=== PATIENT | male | born 1950 | race African-American/Black ===

== ENCOUNTER 2017-03-04 16:04 | Emergency (ER) | payer BC, MEDICARE ==
[~2017-03-04] VITALS: Ht 175.3 cm; Wt 82.0 kg
[2017-03-04] MEDS ORDERED: CLOP75TA33 (16:12)
[2017-03-04] MEDS ORDERED: ASPI-1159 PO (16:12)
[2017-03-04] MEDS ORDERED: CARV3.1242 (16:12)
[2017-03-04] MEDS ORDERED: IBUPROFEN 800MG TABLET PO ONE (17:30)
[2017-03-04 18:46] VITALS: BP 136/79
== END 2017-03-04 19:24 | disposition left against medical advice (07) ==
LOC: ER 16:10
DX: S22.41XA Multiple fractures of ribs, right side, initial encounter for closed fracture (principal); I25.2 Old myocardial infarction; R55 Syncope and collapse; Z79.82 Long term (current) use of aspirin; V49.9XXA Car occupant (driver) (passenger) injured in unspecified traffic accident, initial encounter; Y93.89 Activity, other specified; Y92.89 Other specified places as the place of occurrence of the external cause; Y99.8 Other external cause status
CPT/HCPCS: 71010; 71100; 99284

== ENCOUNTER 2019-05-14 23:14 | Emergency (ER) | payer MEDICARE ==
[~2019-05-14] VITALS: Ht 177.8 cm; Wt 79.0 kg
[~2019-05-14 23:14] MED LIST: ASPI-1497 PO; CARV3.1242; CLOP75TA33
[2019-05-15] MEDS ORDERED: SODIUM CHLORIDE 0.9% 500 ML IV ONE (02:22)
[2019-05-15 02:51] LABS: BASOPHILS % 0.8 % (0.0-2.0); CHLORIDE 104 mEq/L (98-107); EOSINOPHILS % 1.3 % (0.0-5.0); HEMATOCRIT. 41.5 % (42.0-52.0); HEMOGLOBIN. 14.2 g/dL (14.0-18.0); LYMPHOCYTES % 7.7 % (20.0-50.0); MEAN CORPUSCULAR HEMOGLOBIN 30.7 pg (28.0-32.0); MEAN CORPUSCULAR VOLUME 89.9 fL (80.0-94.0); MEAN PLATELET VOLUME 8.8 fl (7.4-10.4); MONOCYTES % 9.8 % (2.0-8.0); NEUTROPHILS % 80.4 % (40.0-76.0); PLATELET 166 x1000/uL (130-400); RED BLOOD CELL COUNT 4.61 mill/uL (4.7-6.1); RED CELL DISTRIBUTION WIDTH 12.3 % (11.6-14.6)
[2019-05-15 02:55] LABS: PROTHROMBIN TIME 10.9 sec (9.6-11.0)
[2019-05-15 04:36] LABS: CLARITY URINE CLEAR (CLEAR); COLOR URINE YELLOW (YELLOW); KETONES URINE TRACE (NEGATIVE); LEUKOCYTE ESTERASE URINE NEGATIVE (NEGATIVE); NITRITE URINE NEGATIVE (NEGATIVE); OCCULT BLOOD URINE NEGATIVE (NEGATIVE); PH URINE 5.5 (4.5-8.0); PROTEIN URINE NEGATIVE (NEGATIVE); SPECIFIC GRAVITY URINE 1.015 (1.005-1.030); UROBILINOGEN URINE 0.2 E.U./dL (0.2-1.0)
[2019-05-15 06:00] VITALS: BP 125/67
== END 2019-05-15 06:49 | disposition home or self-care (01) ==
LOC: ER 23:14
DX: R55 Syncope and collapse (principal); I10 Essential (primary) hypertension; I25.2 Old myocardial infarction; Z95.5 Presence of coronary angioplasty implant and graft; Z79.899 Other long term (current) drug therapy
CPT/HCPCS: 36415; 71045; 80053; 81003; 82962; 83880; 84484; 85025; 85610; 93005; 96360; 99285; J7030

== ENCOUNTER 2024-05-24 15:39 | Emergency (ER) | payer MEDICARE ==
[~2024-05-24] VITALS: Ht 175.3 cm; Wt 74.0 kg
[2024-05-24 16:07] VITALS: O2SAT 99
[2024-05-24 19:01] VITALS: BP 168/88; PULSE 88; RESP 18; TEMP 37; O2SAT 99
== END 2024-05-24 19:01 | disposition home or self-care (01) ==
LOC: ER 15:39
DX: Z00.8 Encounter for other general examination (principal); I25.2 Old myocardial infarction; Z79.899 Other long term (current) drug therapy; T44.7X5A Adverse effect of beta-adrenoreceptor antagonists, initial encounter; T45.525A Adverse effect of antithrombotic drugs, initial encounter; Y92.89 Other specified places as the place of occurrence of the external cause
CPT/HCPCS: 99281

== ENCOUNTER 2024-05-25 15:02 | Emergency (ER) | payer MEDICARE ==
[~2024-05-25] VITALS: Ht 175.3 cm; Wt 74.1 kg
[2024-05-25 15:28] VITALS: O2SAT 98
[2024-05-25 16:12] LABS: CHLORIDE 100 mEq/L (98-107); POTASSIUM 3.7 mEq/L (3.5-5.1); SODIUM 135 mEq/L (136-145)
[2024-05-25 16:13] LABS: CALCIUM 9.5 mg/dL (8.7-10.4); CARBON DIOXIDE 26 mEq/L (21-32)
[2024-05-25 16:15] LABS: BASOPHILS % 0.3 % (0.0-2.0); EOSINOPHILS % 0.6 % (0.0-5.0); HEMATOCRIT. 45.7 % (42.0-52.0); HEMOGLOBIN. 14.9 g/dL (14.0-18.0); MEAN CORPUSCULAR HEMOGLOBIN 28.7 pg (28.0-32.0); MEAN CORPUSCULAR HGB CONC 32.7 g/dL (31.0-37.0); MEAN CORPUSCULAR VOLUME 87.8 fL (80.0-94.0); MEAN PLATELET VOLUME 8.9 fl (7.4-10.4); MONOCYTES % 7.7 % (2.0-8.0); NEUTROPHILS % 71.4 % (40.0-76.0); PLATELET 303 x1000/uL (130-400); RED CELL DISTRIBUTION WIDTH 12.7 % (11.6-14.6); WHITE BLOOD COUNT 16.2 x1000/uL (4.5-11.0)
[2024-05-25 16:18] LABS: CREATININE 1.3 mg/dL (0.6-1.3); GLUCOSE 158 mg/dL (70-105); UREA NITROGEN BLOOD 22 mg/dL (9-23)
[2024-05-25 17:05] VITALS: BP 187/98; PULSE 98; RESP 18; TEMP 36.9; O2SAT 98
== END 2024-05-25 17:07 | disposition home or self-care (01) ==
LOC: ER 15:02
DX: I25.2 Old myocardial infarction (principal); I10 Essential (primary) hypertension; Z79.82 Long term (current) use of aspirin
CPT/HCPCS: 36415; 80048; 85025; 99283